=== PATIENT | female | born 1990 | race Caucasian/White ===

== ENCOUNTER 2021-02-19 20:50 | Emergency (ER) | payer OTHER ==
[2021-02-19 23:34] LABS: Absolute Lymphocytes (CBC) 2.5 K/uL (0.7-4.9); Basophils % 0.7 % (0-1.3); Hematocrit 36.5 % (36.0-45.0); Lymphocytes % 37.4 % (15.3-44.8); MPV 8.4 fL (7.6-11.3); RBC Red Blood Cell Count 3.85 M/uL (3.86-4.86)
[2021-02-19 23:35] LABS: Protime INR 1.11
[2021-02-19 23:39] LABS: Urine Blood Trace-intact (Negative); Urine Glucose Negative (Negative); Urine Protein Negative (Negative)
[2021-02-19 23:56] LABS: ALT/SGPT 14 U/L (12-78); AST/SGOT 8 U/L (15-37); Albumin 3.9 g/dL (3.4-5.0); Alkaline Phosphatase 61 U/L (45-117); BUN Blood Urea Nitrogen 10 mg/dL (7-18); Bicarbonate 26 mmol/L (21-32); Bilirubin Direct 0.1 mg/dL (0-0.2); Bilirubin Total 0.4 mg/dL (0.2-1.0); Glucose Level 89 mg/dL (74-106); Magnesium 2.3 mg/dL (1.8-2.4); NT PRO-BNP 107 pg/mL (<125); Potassium 3.9 mmol/L (3.5-5.1); Protein, Total 6.8 g/dL (6.4-8.2); Sodium Level 143 mmol/L (136-145); Troponin (Emerg Dept Use Only) < 0.02 ng/mL (0.0-0.045)
[2021-02-20] MEDS ORDERED: KETOROLAC 30 MG/ML INJ ONE (01:55)
--- NOTE | 2021-02-20 02:28 | EDPHYS ---
Physician Documentation [facility] Name: Ximena Smith Age: 30 yrs Sex: Female : 1990 Arrival Date: 02/19/2021 Time: 20:55 Bed 27 Private MD: ED Physician Moy Fountain HPI: 02/20 01:15 This 30 yrs old Female presents to ER via Ambulatory with complaints of Chest mh7 Pain, LT armr circulation cutting off. 01:15 The patient or guardian reports chest pain that is located primarily in the anterior mh7 chest wall, left. The pain radiates to the left arm. 01:15 Associated signs and symptoms: Pertinent negatives: abdominal pain, cough, diaphoresis, mh7 dizziness, headache, lower extremity pain, lower extremity swelling, lightheadedness, nausea, near syncope, palpitations, recent travel, shortness of breath, syncope, vomiting. 01:15 The chest pain is described as sharp. mh7 01:15 Duration: The patient or guardian reports multiple episodes, that are intermittent, mh7 that wax and wane, with no pattern. 01:15 Modifying factors: The symptoms are alleviated by nothing. the symptoms are aggravated mh7 by movement. Severity of pain: At its worst the pain was moderate last night, in the emergency department the pain has improved markedly. 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 - Social history:: Smoking status: Patient reports the use of cigarette tobacco products, smokes one-half pack cigarettes per day, Patient uses alcohol, occasionally. ROS: 02/20 01:15 Constitutional: Negative for fever, chills, and weight loss, Eyes: Negative for injury, mh7 pain, redness, and discharge, ENT: Negative for injury, pain, and discharge, Respiratory: Negative for shortness of breath, cough, wheezing, and pleuritic chest pain, Abdomen/GI: Negative for abdominal pain, nausea, vomiting, diarrhea, and constipation, Back: Negative for injury and pain, : Negative for injury, bleeding, discharge, and swelling, MS/Extremity: Negative for injury and deformity, Skin: Negative for injury, rash, and discoloration, Psych: Negative for depression, anxiety, suicide ideation, homicidal ideation, and hallucinations, Allergy/Immunology: Negative for hives, rash, and allergies, Endocrine: Negative for neck swelling, polydipsia, polyuria, polyphagia, and marked weight changes, Hematologic/Lymphatic: Negative for swollen nodes, abnormal bleeding, and unusual bruising. Exam: 01:15 Constitutional: This is a well developed, well nourished patient who is awake, alert, mh7 and in no acute distress. Head/Face: Normocephalic, atraumatic. Eyes: Pupils equal round and reactive to light, extra-ocular motions intact. Lids and lashes normal. Conjunctiva and sclera are non-icteric and not injected. Cornea within normal limits. Periorbital areas with no swelling, redness, or edema. Neck: Trachea midline, no thyromegaly or masses palpated, and no cervical lymphadenopathy. Supple, full range of motion without nuchal rigidity, or vertebral point tenderness. No Meningismus. Chest/axilla: Normal chest wall appearance and motion. Nontender with no deformity. No lesions are appreciated. Cardiovascular: Regular rate and rhythm with a normal S1 and S2. No gallops, murmurs, or rubs. Normal PMI, no JVD. No pulse deficits. Respiratory: Lungs have equal breath sounds bilaterally, clear to auscultation and percussion. No rales, rhonchi or wheezes noted. No increased work of breathing, no retractions or nasal flaring. Abdomen/GI: Soft, non-tender, with normal bowel sounds. No distension or tympany. No guarding or rebound. No evidence of tenderness throughout. Back: No spinal tenderness. No costovertebral tenderness. Full range of motion. Skin: Warm, dry with normal turgor. Normal color with no rashes, no lesions, and no evidence of cellulitis. MS/ Extremity: Pulses equal, no cyanosis. Neurovascular intact. Full, normal range of motion. Neuro: Awake and alert, GCS 15, oriented to person, place, time, and situation. Cranial nerves II-XII grossly intact. Motor strength 5/5 in all extremities. Sensory grossly intact. Cerebellar exam normal. Normal gait. Psych: Awake, alert, with orientation to person, place and time. Behavior, mood, and affect are within normal limits. Vital Signs: 02/19 21:27 BP 145 / 86; Pulse 69; Resp 20; Temp 98.1(O); Pulse Ox 100% on R/A; Weight 81.65 kg kg (R); Height 5 ft. 8 in. (172.72 cm); Pain 7/10; 21:27 Body Mass Index 27.37 (81.65 kg, 172.72 cm) kg MDM: 02/20 02:24 Differential diagnosis: acute myocardial infarction, acute pericarditis, anxiety, mh7 coronary artery disease chest wall pain, congestive heart failure costochondritis, myocarditis, pericarditis, pneumonia, pulmonary embolus. HEART Score: History: Slightly Suspicious (0), ECG: Normal (0), Age: < or = 45 years (0), Risk Factors: No Risk Factors Known (0), Troponin: < or = 1 x Normal Limit (0), Total Score = 0. Data reviewed: vital signs, nurses notes, lab test result(s), cardiac enzymes, CBC, electrolytes, urinalysis, UPT: negative EKG, radiologic studies, plain films. Data interpreted: Pulse oximetry: on room air is 100 %. Interpretation: normal. Counseling: I had a detailed discussion with the patient and/or guardian regarding: the historical points, exam findings, and any diagnostic results supporting the discharge/admit diagnosis, the presence of at least one elevated blood pressure reading (>120/80) during this emergency department visit, lab results, radiology results, the need for outpatient follow up. Response to treatment: the patient's symptoms have resolved after treatment, the patient's blood pressure is in an acceptable range, mental status has returned to baseline, the patient no longer shows bradycardia, the patient is not short of breath, the patient is not tachycardic, the patient's pain is gone, the patient's temperature has normalized, the patient is now symptom free, patient is well hydrated. 02:27 Patient medically screened. [facility] 02/19 21:33 Order name: Basic Metabolic Panel; Complete Time: 01:09 kg 02/19 21:33 Order name: CBC with Diff; Complete Time: 01:09 kg 02/19 21:33 Order name: LFT's; Complete Time: 01:09 kg 02/19 21:33 Order name: Magnesium; Complete Time: 01:09 kg 02/19 21:33 Order name: NT PRO-BNP; Complete Time: 01:09 kg 02/19 21:33 Order name: PT-INR; Complete Time: 01:50 kg 02/19 21:33 Order name: Troponin (emerg Dept Use Only); Complete Time: 01:09 kg 02/19 21:33 Order name: XRAY Chest (1 view) kg 02/19 21:33 Order name: EKG; Complete Time: 21:33 kg 02/19 23:38 Order name: Urine Dipstick-Ancillary; Complete Time: 01:09 EDMS 02/19 23:40 Order name: Urine --Ancillary (enter results); Complete Time: 01:09 ds4 02/20 01:28 Order name: D-Dimer [facility] 02/20 01:47 Order name: D-Dimer; Complete Time: 01:50 EDMS 02/19 21:33 Order name: Cardiac monitoring; Complete Time: 01:24 kg 02/19 21:33 Order name: EKG - Nurse/Tech; Complete Time: 21:33 kg 02/19 21:33 Order name: IV Saline Lock; Complete Time: 02:03 kg 02/19 21:33 Order name: Labs collected and sent; Complete Time: 01:09 kg 02/19 21:33 Order name: O2 Per Protocol; Complete Time: 23:40 kg 02/19 21:33 Order name: O2 Sat Monitoring; Complete Time: 23:40 kg Administered Medications: 01:55 Drug: Ketorolac 30 mg Route: IVP; Site: right antecubital; lp1 02:56 Follow up: Response: No adverse reaction; Marked relief of symptoms em Disposition Summary: 02/20/21 02:27 Discharge Ordered Location: Home [facility] Problem: new [facility] Symptoms: have improved [facility] Condition: Stable [facility] Diagnosis - Chest pain, unspecified 7 Followup: [facility] - With: Private Physician - When: 1 - 2 days - Reason: Worsening of condition, Recheck today's complaints, Continuance of care, Re-evaluation by your physician Discharge Instructions: - Discharge Summary Sheet [facility] - Nonspecific Chest Pain, Adult, [id number] [facility] Forms: - Medication Reconciliation Form [facility] - Thank You Letter [facility] - Antibiotic Education [facility] - Prescription Opioid Use [facility] Prescriptions: - ketorolac 10 mg Oral tablet - take 1 tablet by ORAL route every 6 hours As needed not to exceed 40 mg in [facility] 24hrs; 12 tablet; Refills: 0, Product Selection Permitted Signatures: Dispatcher [employer] Chanell Bailey RN RN 1 Salvador Nicole, DOUBLE END PRODUCTION GRINDER-C DOUBLE END PRODUCTION GRINDER-[facility]1 Moy Fountain MD MD [facility] Noelle Chawla RN RN Herbert Connell RN
--- NOTE | 2021-02-20 02:28 | ER ---
Nurse's Notes [facility] Name: Ximena Smith Age: 30 yrs Sex: Female : 1990 Arrival Date: 02/19/2021 Time: 20:55 Bed 27 Private MD: Diagnosis: Chest pain, unspecified Presentation: 02/19 21:27 Chief complaint: Patient states: Left arm pain that radiates to left side of the neck, kg tingling, numbness and burning starting at 20:00 while she was laying in bed resting. Coronavirus screen: Client denies travel out of the [place] in the last 14 days. At this time, unable to obtain information related to travel outside the [place] At this time, the client does not indicate any symptoms associated with coronavirus-19. Ebola Screen: Patient negative for fever greater than or equal to 101.5 degrees Fahrenheit, and additional compatible Ebola Virus Disease symptoms Patient denies exposure to infectious person. Patient denies travel to an Ebola-affected area in the 21 days before illness onset. Initial Sepsis Screen: Does the patient meet any 2 criteria? No. Patient's initial sepsis screen is negative. Does the patient have a suspected source of infection? No. Patient's initial sepsis screen is negative. Risk Assessment: Do you want to hurt yourself or someone else? Patient reports no desire to harm self or others. Onset of symptoms was February 19, 2021 at 20:00. 21:27 Method Of Arrival: Ambulatory kg 21:27 Acuity: LAVINIA 3 kg Triage Assessment: 21:29 General: Appears in no apparent distress. Behavior is calm, cooperative, appropriate kg for age, quiet. Pain: Complains of pain in Left arm, Left neck, left sided chest pain. Cardiovascular: Reports chest pain, nausea. 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 - Social history:: Smoking status: Patient reports the use of cigarette tobacco products, smokes one-half pack cigarettes per day, Patient uses alcohol, occasionally. Screenin:31 Abuse screen: Denies threats or abuse. Denies injuries from another. Nutritional kg screening: No deficits noted. Tuberculosis screening: No symptoms or risk factors identified. Fall Risk None identified. Assessment: 21:32 Pain: Pain radiates to Left side of neck Pain began 2 hours ago. kg 02/20 02:55 Reassessment: Patient appears in no apparent distress at this time. Patient and/or em family updated on plan of care and expected duration. Pain level reassessed. Patient is alert, oriented x 3, equal unlabored respirations, skin warm/dry/pink. Vital Signs: 02/19 21:27 BP 145 / 86; Pulse 69; Resp 20; Temp 98.1(O); Pulse Ox 100% on R/A; Weight 81.65 kg kg (R); Height 5 ft. 8 in. (172.72 cm); Pain 7/10; 21:27 Body Mass Index 27.37 (81.65 kg, 172.72 cm) kg ED Course: 20:55 Patient arrived in ED. es 21:29 Triage completed. kg 21:29 Arm band placed on right wrist. kg 21:31 Patient has correct armband on for positive identification. kg 21:32 Patient maintains SpO2 saturation greater than 95% on room air. kg 22:08 XRAY Chest (1 view) In Process Unspecified. EDMS 02/20 01:08 Moy Fountain MD is Attending Physician. [facility] 01:29 Herbert Connell, TOMI is Primary Nurse. em 01:55 Inserted saline lock: 22 gauge in right antecubital area, using aseptic technique. em 02:54 No provider procedures requiring assistance completed. IV discontinued, intact, em bleeding controlled, No redness/swelling at site. Pressure dressing applied. Administered Medications: 01:55 Drug: Ketorolac 30 mg Route: IVP; Site: right antecubital; lp1 02:56 Follow up: Response: No adverse reaction; Marked relief of symptoms em Outcome: :27 Discharge ordered by . 7 02:56 Discharged to home ambulatory. em 02:56 Condition: stable 02:56 Discharge instructions given to patient, Instructed on discharge instructions, follow up and referral plans. medication usage, Demonstrated understanding of instructions, follow-up care, medications, Prescriptions given X 1. 02:56 Patient left the ED. em Signatures: Dispatcher [employer] Jolie Brice Edgar, RN RN em Chanell Soto RN RN lp1 Moy Fountain MD MD 7 Noelle Chawla RN RN kg
[2021-02-20 03:05] VITALS: BP 145/86; TEMP 98.1; O2SAT 100
--- NOTE | 2021-02-20 07:25 | RAD REPORT ---
EXAM DESCRIPTION: RAD - Chest Single View - 02/19/2021 10:07 pm CLINICAL HISTORY: PAIN COMPARISON: No comparisons FINDINGS: No evidence of edema or pneumonia. The heart size is within normal limits.No acute osseous abnormality. No significant pleural effusions or pneumothorax. IMPRESSION: No acute cardiopulmonary disease.
== END 2021-02-20 02:56 | disposition home or self-care (01) ==
LOC: ER 20:50
DX: R07.89 Other chest pain (principal); F17.210 Nicotine dependence, cigarettes, uncomplicated
CPT/HCPCS: 36415; 71045; 80048; 80076; 81003; 81025; 83735; 83880; 84484; 85025; 85379; 85610; 93005; 96374; 99284

== ENCOUNTER 2021-03-12 19:46 | Emergency (ER) | payer OTHER ==
[2021-03-12 20:28] LABS: Urine Blood Negative (Negative); Urine Glucose Negative (Negative); Urine Protein Negative (Negative); Urine Specific Gravity 1.015 (1.005-1.030); Urine pH 8.5 (5.0-7.0)
[2021-03-12 20:47] LABS: Urine Specific Gravity/Preg 1.015 (1.005-1.030)
[2021-03-12 20:54] LABS: Absolute Lymphocytes (CBC) 2.2 K/uL (0.7-4.9); Basophils % 0.5 % (0-1.3); Hematocrit 38.8 % (36.0-45.0); Lymphocytes % 27.6 % (15.3-44.8); MPV 8.7 fL (7.6-11.3)
[2021-03-12] MEDS ORDERED: ONDANSETRON 4 MG/2 ML VIAL ONE (21:05)
[2021-03-12] MEDS ORDERED: KETOROLAC 30 MG/ML INJ ONE (21:05)
[2021-03-12 21:18] LABS: ALT/SGPT 16 U/L (12-78); AST/SGOT 10 U/L (15-37); Albumin 3.9 g/dL (3.4-5.0); Alkaline Phosphatase 68 U/L (45-117); BUN Blood Urea Nitrogen 11 mg/dL (7-18); Bicarbonate 26 mmol/L (21-32); Bilirubin Direct < 0.1 mg/dL (0-0.2); Bilirubin Total 0.3 mg/dL (0.2-1.0); Glucose Level 90 mg/dL (74-106); Lipase 62 U/L (73-393); Potassium 3.4 mmol/L (3.5-5.1); Sodium Level 142 mmol/L (136-145)
[2021-03-12 21:39] LABS: Urine Bacteria 20-50 /HPF (<20); Urine RBC NONE SEEN /HPF (NONE SEEN)
--- NOTE | 2021-03-12 21:58 | RAD REPORT ---
EXAM DESCRIPTION: US - Transvaginal Study Probe - 03/12/2021 9:31 pm CLINICAL HISTORY: lower abdomen pain Pelvic pain. COMPARISON: No comparisons FINDINGS: The uterus is normal in size, shape and echotexture. The uterus measures 6.4 x 5.4 x 4.8 c m. The endometrial stripe measures 8 mm, normal. Both ovaries are normal in size, shape and echotexture. The right ovary measures 3.8 x 2.6 x 2.2 cm. The left ovary measures 3.2 x 1.7 x 1.6 cm. No ovarian or parovarian lesions. No adnexal masses. Normal Doppler blood flow was demonstrated to both ovaries. Trace pelvic free fluid. IMPRESSION: Unremarkable study.
--- NOTE | 2021-03-12 22:03 | RAD REPORT ---
EXAM DESCRIPTION: CT - Stone Protocol - 03/12/2021 9:58 pm CLINICAL HISTORY: Flank pain. left side abdomen pain COMPARISON: No comparisons TECHNIQUE: Axial images were obtained without oral or IV contrast. Lack of contrast limits solid org an and vascular assessment. The [id number] spans the entirety of the system partially obscuring uppermost abdomen and lung bases. Coronal reformatted images were obtained and reviewed. All CT scans are performed using dose optimization technique as appropriate and may include automated exposure control or mA/KV adjustment according to patient size. FINDINGS: The lower lung ochoa are clear. Imaged portions of the liver and spleen show no suspicious findings on non-contrast imaging. The panc reas and adrenal glands are normal. No pathologic lymphadenopathy in the abdomen or pelvis. No urinary tract stones or obstructive uropathy. No bowel obstruction, free air, free fluid or abscess. Appendectomy. No significant bony abnormality. IMPRESSION: No urinary tract stones or obstructive uropathy.
--- NOTE | 2021-03-12 22:17 | EDPHYS ---
Physician Documentation [facility] Name: Ximena Smith Age: 31 yrs Sex: Female : 1990 Arrival Date: 03/12/2021 Time: 19:47 Bed 4 Private MD: ED Physician Sebastián Yoder HPI: 03/12 20:20 This 31 yrs old Female presents to ER via Ambulatory with complaints of cp Abdominal Pain. 20:20 The patient presents with abdominal pain in the left lower quadrant. cp 20:20 Onset: The symptoms/episode began/occurred suddenly, today, 5 hour(s) ago. cp 20:20 The symptoms do not radiate. Associated signs and symptoms: Pertinent negatives: cp constipation, diarrhea, dysuria, fever, vaginal discharge, vaginal bleeding. The symptoms are described as sharp. Modifying factors: the symptoms are aggravated by movement, pressure. Severity of pain: in the emergency department the pain is unchanged despite home interventions. 20:20 Patient reports pain similar to when diagnosed with ectopic in the past. 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 - Social history:: Smoking status: Patient reports the use of cigarette tobacco products, smokes one-half pack cigarettes per day. ROS: 20:30 Constitutional: Negative for body aches, chills, fever, poor PO intake. cp 20:30 Eyes: Negative for injury, pain, redness, and discharge. cp 20:30 ENT: Negative for ear pain, sore throat, difficulty swallowing, difficulty handling secretions. 20:30 Respiratory: Negative for cough, shortness of breath, wheezing. 20:30 Abdomen/GI: Positive for abdominal pain, of the left lower quadrant, Negative for vomiting, diarrhea, constipation, anorexia. 20:30 Back: Negative for radiated pain. 20:30 : Negative for urinary symptoms, pelvic pain, vaginal bleeding, vaginal discharge. 20:30 Skin: Negative for rash. 20:30 Neuro: Negative for altered mental status, headache, weakness. 20:30 All other systems are negative. Exam: 20:35 Constitutional: The patient appears in no acute distress, alert, awake, non-toxic, well cp developed, well nourished. 20:35 Head/Face: Normocephalic, atraumatic. cp 20:35 Eyes: Periorbital structures: appear normal, Conjunctiva: normal, no exudate, no injection, Sclera: no appreciated abnormality, Lids and lashes: appear normal, bilaterally. 20:35 ENT: External ear(s): are unremarkable, Nose: is normal, Mouth: Lips: moist, Oral mucosa: moist, Posterior pharynx: Airway: no evidence of obstruction, patent. 20:35 Chest/axilla: Inspection: normal, Palpation: is normal, no crepitus, no tenderness. 20:35 Cardiovascular: Rate: normal, Rhythm: regular. 20:35 Respiratory: the patient does not display signs of respiratory distress, Respirations: normal, no use of accessory muscles, no retractions, labored breathing, is not present, Breath sounds: are clear throughout, no decreased breath sounds. 20:35 Abdomen/GI: Inspection: abdomen appears normal, Bowel sounds: active, all quadrants, Palpation: soft, in all quadrants, moderate abdominal tenderness, in the left lower quadrant, rebound tenderness, is not appreciated, voluntary guarding, is elicited in the left lower quadrant. 20:35 Back: CVA tenderness, is absent. 20:35 Skin: no rash present. Vital Signs: 20:05 BP 143 / 86; Pulse 82; Resp 18; Temp 98.6; Pulse Ox 100% on R/A; Weight 81.65 kg; wg Height 5 ft. 8 in. (172.72 cm); Pain 8/10; 21:58 BP 114 / 70; Pulse 75; Resp 16; Pulse Ox 99% on R/A; Pain 6/10; lp1 20:05 Body Mass Index 27.37 (81.65 kg, 172.72 cm) wg MDM: 20:17 Patient medically screened. cp 21:00 Differential diagnosis: non-specific abd pain, Ovarian Torsion, Pelvic Inflammatory cp Disease, Pyelonephritis, Tubal Ovarian Abcess, Ureterolithiasis, urinary tract infection. 22:15 Data reviewed: vital signs, nurses notes, lab test result(s), radiologic studies, CT cp scan, plain films. 22:15 Counseling: I had a detailed discussion with the patient and/or guardian regarding: the cp historical points, exam findings, and any diagnostic results supporting the discharge/admit diagnosis, lab results, radiology results, to return to the emergency department if symptoms worsen or persist or if there are any questions or concerns that arise at home. Response to treatment: the patient's symptoms have markedly improved after treatment. Special discussion: Based on the patient's Hx, exam, and Dx evaluation, there is no indication for emergent surgery or inpatient Tx. It is understood by the patient/guardian that if the Sx's persist or worsen they need to return immediately for re-evaluation. ED course: VSS. Pain markedly improved. Radiology studies reviewed and negative for acute findings. Will discharge to home for continued monitoring. 03/12 20:11 Order name: Basic Metabolic Panel; Complete Time: 21:36 wg 03/12 21:45 Interpretation: Normal except: K 3.4; CL 113; GFR 76. 03/12 20:11 Order name: CBC with Diff; Complete Time: 21:36 wg 03/12 20:11 Order name: Hepatic Function; Complete Time: 21:36 wg 03/12 20:11 Order name: Lipase; Complete Time: 21:36 wg 03/12 20:28 Order name: Urine Dipstick-Ancillary; Complete Time: 21:36 EDMS 03/12 20:31 Order name: Urine Microscopic Only; Complete Time: 21:45 03/12 21:45 Interpretation: Normal except: UBACT 20-50; SQEPI 5-10. 03/12 20:31 Order name: Urine Culture 03/12 20:31 Order name: US Transvaginal Study (Probe); Complete Time: 22:06 03/12 20:31 Order name: Urine --Ancillary (enter results); Complete Time: 21:36 tt3 03/12 21:37 Order name: CT Stone Protocol; Complete Time: 22:06 03/12 20:11 Order name: IV Saline Lock; Complete Time: 20:37 wg 03/12 20:11 Order name: Labs collected and sent; Complete Time: 20:37 wg 03/12 20:11 Order name: Urine Test (obtain specimen); Complete Time: 20:37 wg Administered Medications: 20:38 Not Given (Patient Refused; reports bad headache with adminstration): morphine 4 mg IVP lp1 once; RASS on ADMIN: Combtv4, Very Agttd3, Agttd2, Rstlss1, AlertClm0, Drwsy-1, Lt Sdtn-2, Mod Sdtn-3, Dp Sdtn-4, UnArsble-5 20:46 Drug: Zofran (Ondansetron) 4 mg Route: IVP; Site: right antecubital; lp1 22:13 Follow up: Response: No adverse reaction lp1 20:46 Drug: Ketorolac 15 mg Route: IVP; Site: right antecubital; lp1 22:13 Follow up: Response: Pain is decreased lp1 22:13 Drug: fentaNYL (PF) 25 mcg Route: IVP; Site: right antecubital; lp1 22:30 Follow up: Response: No adverse reaction; Pain is decreased lp1 Disposition Summary: 03/12/21 22:16 Discharge Ordered Location: Home cp Problem: new cp Symptoms: have improved cp Condition: Stable cp Diagnosis - Lower abdominal pain, unspecified cp Followup: cp - With: Private Physician - When: 2 - 3 days - Reason: Recheck today's complaints Discharge Instructions: - Discharge Summary Sheet cp - Abdominal Pain, Adult cp Forms: - Medication Reconciliation Form cp - Thank You Letter cp - Antibiotic Education cp - Prescription Opioid Use cp Prescriptions: - Diclofenac Sodium 75 mg Oral tablet,delayed release (DR/EC) - take 1 tablet by ORAL route 2 times per day; 20 tablet; Refills: 0, Product cp Selection Permitted - dicyclomine 20 mg Oral Tablet - take 1 tablet by ORAL route 4 times per day; 30 tablet; Refills: 0, Product cp Selection Permitted Signatures: Dispatcher [employer] Chanell Bailey RN RN lp1 Ricci Jalloh PA PA cp Gamba, Liam, RN wg
--- NOTE | 2021-03-12 22:17 | ER ---
Nurse's Notes [facility] Name: Ximena Smith Age: 31 yrs Sex: Female : 1990 Arrival Date: 03/12/2021 Time: 19:47 Bed 4 Private MD: Diagnosis: Lower abdominal pain, unspecified Presentation: 03/12 20:05 Chief complaint: Patient states: Pt states she was at an arcade with her kids about 5 wg hours ago when she started feeling sharp LLQ abd pain. Pt states it feels similar to when she had an ectopic in the past. Pt denies SOB, CP, N/V, diarrhea or headache. Pt states she is unsure if she is preg. Coronavirus screen: Vaccine status: Patient reports being unvaccinated. At this time, the client does not indicate any symptoms associated with coronavirus-19. Ebola Screen: Patient negative for fever greater than or equal to 101.5 degrees Fahrenheit, and additional compatible Ebola Virus Disease symptoms Patient denies exposure to infectious person. Patient denies travel to an Ebola-affected area in the 21 days before illness onset. No symptoms or risks identified at this time. Initial Sepsis Screen: Does the patient meet any 2 criteria? No. Patient's initial sepsis screen is negative. Does the patient have a suspected source of infection? No. Patient's initial sepsis screen is negative. Risk Assessment: Do you want to hurt yourself or someone else? Patient reports no desire to harm self or others. Onset of symptoms was March 12, 2021 at 15:00. Care prior to arrival: None. 20:05 Method Of Arrival: Ambulatory wg 20:05 Acuity: LAVINIA 3 wg Triage Assessment: 20:08 General: Appears distressed, uncomfortable, well groomed, well developed, Behavior is wg cooperative, appropriate for age, restless. Pain: Complains of pain in abdomen- LLQ Pain radiates to States radiating to her left clavicle. Pain currently is 8 out of 10 on a pain scale. Quality of pain is described as sharp, Pain began 5 hours ago. EENT: No deficits noted. Neuro: No deficits noted. Cardiovascular: No deficits noted. Respiratory: No deficits noted. GI: Reports lower abdominal pain, normal bowel habits, Patient currently denies nausea, vomiting. : No deficits noted. Derm: No signs and/or symptoms reported regarding the dermatologic system. Musculoskeletal: No deficits noted. 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 - Social history:: Smoking status: Patient reports the use of cigarette tobacco products, smokes one-half pack cigarettes per day. Screenin:39 Abuse screen: Denies threats or abuse. Denies injuries from another. Nutritional lp1 screening: No deficits noted. Tuberculosis screening: No symptoms or risk factors identified. Fall Risk None identified. Assessment: 20:46 Reassessment:. General: Appears uncomfortable, Behavior is appropriate for age. Pain: lp1 Complains of pain in left lower quadrant Pain currently is 7 out of 10 on a pain scale. Quality of pain is described as sharp. Neuro: Level of Consciousness is awake, alert, obeys commands. Cardiovascular: Patient's skin is warm and dry. Respiratory: Respiratory effort is even, unlabored. GI: Abdomen is non-distended, Bowel sounds present X 4 quads. Abdomen is tender to palpation in left lower quadrant Reports lower abdominal pain, nausea. : Denies burning with urination, urinary frequency. EENT: No signs and/or symptoms were reported regarding the EENT system. Derm: Skin is pink, warm \T\ dry. Musculoskeletal: No deficits noted. 21:52 Reassessment: Returned from CT. lp1 22:30 Reassessment: Patient appears in no apparent distress at this time. Patient is alert, lp1 oriented x 3, equal unlabored respirations, skin warm/dry/pink. Patient states feeling better. Vital Signs: 20:05 BP 143 / 86; Pulse 82; Resp 18; Temp 98.6; Pulse Ox 100% on R/A; Weight 81.65 kg; wg Height 5 ft. 8 in. (172.72 cm); Pain 8/10; 21:58 BP 114 / 70; Pulse 75; Resp 16; Pulse Ox 99% on R/A; Pain 6/10; lp1 20:05 Body Mass Index 27.37 (81.65 kg, 172.72 cm) ED Course: 19:47 Patient arrived in ED. wm 20:08 Triage completed. wg 20:08 Arm band placed on right wrist. wg 20:16 Ricci Jalloh PA is PHCP. cp 20:16 Sebastián Yoder MD is Attending Physician. cp 20:24 Chanell Soto RN is Primary Nurse. lp1 20:30 Inserted saline lock: 20 gauge in right antecubital area, using aseptic technique. lp1 Blood collected. 20:47 Patient has correct armband on for positive identification. lp1 21:31 US Transvaginal Study (Probe) In Process Unspecified. EDMS 21:58 CT Stone Protocol In Process Unspecified. EDMS 22:30 No provider procedures requiring assistance completed. IV discontinued, No lp1 redness/swelling at site. Pressure dressing applied. Administered Medications: 20:38 Not Given (Patient Refused; reports bad headache with adminstration): morphine 4 mg IVP lp1 once; RASS on ADMIN: Combtv4, Very Agttd3, Agttd2, Rstlss1, AlertClm0, Drwsy-1, Lt Sdtn-2, Mod Sdtn-3, Dp Sdtn-4, UnArsble-5 20:46 Drug: Zofran (Ondansetron) 4 mg Route: IVP; Site: right antecubital; lp1 22:13 Follow up: Response: No adverse reaction lp1 20:46 Drug: Ketorolac 15 mg Route: IVP; Site: right antecubital; lp1 22:13 Follow up: Response: Pain is decreased lp1 22:13 Drug: fentaNYL (PF) 25 mcg Route: IVP; Site: right antecubital; lp1 22:30 Follow up: Response: No adverse reaction; Pain is decreased lp1 Outcome: 22:16 Discharge ordered by MD. cp 22:30 Discharged to home ambulatory, with family. lp1 22:30 Condition: good 22:30 Discharge instructions given to patient, Instructed on discharge instructions, follow up and referral plans. medication usage, Demonstrated understanding of instructions, follow-up care, medications, Prescriptions given X 2. 22:30 Patient left the ED. lp1 Signatures: Dispatcher [employer] EDME Chanell Soto RN RN lp1 Page, Ricci, Loly Desir cp, Tae, RN wg
[2021-03-12] MEDS ORDERED: FENTANYL CITR 100 MCG/2 ML ONE (22:33)
[2021-03-12 22:39] VITALS: TEMP 98.6
[2021-03-12 22:40] VITALS: BP 114/70; O2SAT 99
== END 2021-03-12 22:30 | disposition home or self-care (01) ==
LOC: ER 19:46
DX: R10.32 Left lower quadrant pain (principal); F17.210 Nicotine dependence, cigarettes, uncomplicated
CPT/HCPCS: 87088; 85025; 87086; 80048; 36415; 81025; 80076; 87077; 87186; 83690; 76377; 74176; 76830; 96375; 96374; 99284; J3010; J2405; 81003; 81015

== ENCOUNTER 2021-08-06 14:49 | Emergency (ER) | payer OTHER ==
[2021-08-06] MEDS ORDERED: ONDANSETRON 4 MG/2 ML VIAL ONE (15:37)
[2021-08-06] MEDS ORDERED: MORPHINE 2 MG/ML SYR ONE (15:37)
[2021-08-06] MEDS ORDERED: NA CHLORIDE 0.9% 1,000 ML ONE (15:37)
[2021-08-06] MEDS ORDERED: NA CHLORIDE 0.9% 0 ML ONE (15:37)
[2021-08-06 15:43] LABS: Urine Blood Negative (Negative); Urine Glucose Negative (Negative); Urine Protein Trace (Negative); Urine Specific Gravity 1.025 (1.005-1.030); Urine pH 8.5 (5.0-7.0)
[2021-08-06 16:09] LABS: Absolute Lymphocytes (CBC) 1.5 K/uL (0.7-4.9); Hematocrit 40.2 % (36.0-45.0); Lymphocytes % 20.2 % (15.3-44.8); MPV 9.2 fL (7.6-11.3); RBC Red Blood Cell Count 4.28 M/uL (3.86-4.86)
[2021-08-06 16:11] LABS: Urine Specific Gravity/Preg 1.025 (1.005-1.030)
--- NOTE | 2021-08-06 16:21 | RAD REPORT ---
EXAM DESCRIPTION: CTAbdomen Pelvis W Contrast - 08/06/2021 4:07 pm CLINICAL HISTORY: Abdominal pain. left lower abdomen pain COMPARISON: No comparisons TECHNIQUE: Biphasic CT imaging of the abdomen and pelvis was performed with 100 ml non-ionic IV cont rast. All CT scans are performed using dose optimization technique as appropriate and may include automated exposure control or mA/KV adjustment according to patient size. FINDINGS: The lung bases are clear. The liver, spleen, pancreas, adrenal glands and kidneys are within normal limits. No bowel obstruction, free air, free fluid or abscess. Appendectomy. No evidence of significant lym phadenopathy. No suspicious bony findings. IMPRESSION: No acute intra-abdominal or pelvic finding.
[2021-08-06 16:24] LABS: ALT/SGPT 17 U/L (12-78); Albumin 4.3 g/dL (3.4-5.0); BUN Blood Urea Nitrogen 9 mg/dL (7-18); Bicarbonate 26 mmol/L (21-32); Bilirubin Direct 0.2 mg/dL (0-0.2); Glucose Level 85 mg/dL (74-106); Lipase 59 U/L (73-393); Sodium Level 140 mmol/L (136-145)
[2021-08-06 16:26] LABS: Alkaline Phosphatase 69 U/L (45-117); Bilirubin Total 0.8 mg/dL (0.2-1.0); Protein, Total 7.7 g/dL (6.4-8.2)
[2021-08-06 16:34] LABS: Urine Bacteria <20 /HPF (<20); Urine Mucus 2+ /HPF (NONE SEEN); Urine RBC <5 /HPF (NONE SEEN)
[2021-08-06 16:39] LABS: AST/SGOT 22 U/L (15-37); Potassium 4.1 mmol/L (3.5-5.1)
--- NOTE | 2021-08-06 18:11 | RAD REPORT ---
EXAM DESCRIPTION: US - Transvaginal Study Probe - 08/06/2021 6:01 pm CLINICAL HISTORY: left adnexal pain Pelvic pain. COMPARISON: Transvaginal Study Probe dated 03/12/2021 FINDINGS: The uterus is normal in size, shape and echotexture. The uterus measures 8.8 x 7.1 x 5.9 c m. The endometrial stripe measures 14 mm, normal. Both ovaries are normal in size, shape and echotexture. The right ovary measures 3.3 x 2.2 x 2.1 cm. The left ovary measures 3.2 x 2.1 x 2.0 cm. No ovarian or parovarian lesions. No adnexal masses. Normal Doppler blood flow was demonstrated to both ovaries. No significant pelvic ascites. IMPRESSION: Unremarkable study.
[2021-08-06] MEDS ORDERED: KETOROLAC 30 MG/ML INJ ONE (18:34)
--- NOTE | 2021-08-06 19:50 | ER ---
Nurse's Notes [facility] Name: Ximena Smith Age: 31 yrs Sex: Female : 1990 Arrival Date: 08/06/2021 Time: 14:53 Bed 16 Private MD: Diagnosis: Lower abdominal pain, unspecified Presentation: 08/06 15:04 Chief complaint: Patient states: I have PCOS - 2 hours ago I began having LLQ/pelvis ld1 pain, I am also hurting in my rectum - feels like a lot of pressure. Coronavirus screen: At this time, the client does not indicate any symptoms associated with coronavirus-19. Ebola Screen: No symptoms or risks identified at this time. Initial Sepsis Screen: Does the patient meet any 2 criteria? No. Patient's initial sepsis screen is negative. Does the patient have a suspected source of infection? No. Patient's initial sepsis screen is negative. Risk Assessment: Do you want to hurt yourself or someone else? Patient reports no desire to harm self or others. Onset of symptoms was August 06, 2021. 15:04 Method Of Arrival: Ambulatory ld1 15:04 Acuity: LAVINIA 3 ld1 Triage Assessment: 15:05 General: Appears in no apparent distress. uncomfortable, Behavior is cooperative, ld1 appropriate for age, anxious. Pain: Complains of pain in gluteal cleft, left lower quadrant and pelvis Pain does not radiate. Pain currently is 8 out of 10 on a pain scale. Quality of pain is described as pressure, squeezing, throbbing, Pain began 2 hours ago. Is continuous. Neuro: Level of Consciousness is awake, alert, obeys commands, Oriented to person, place, time, situation. Respiratory: Airway is patent Respiratory effort is even, unlabored. GI: Abdomen is round non-distended. :. 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 - Social history:: Smoking status: Patient reports the use of cigarette tobacco products, smokes one-half pack cigarettes per day, Reported history of juuling and/or vaping. Patient/guardian denies using alcohol. Screenin:56 Abuse screen: Denies threats or abuse. Denies injuries from another. Nutritional cb5 screening: No deficits noted. Tuberculosis screening: No symptoms or risk factors identified. 15:57 Fall Risk None identified. cb5 Assessment: 15:35 General: Appears in no apparent distress. comfortable, Behavior is calm, cooperative, cb5 appropriate for age. Pain: Complains of pain in pelvis and abdomen and left lower quadrant Pain currently is 5 out of 10 on a pain scale. Neuro: No deficits noted. Cardiovascular: No deficits noted. Cardiovascular: No deficits noted. Respiratory: No deficits noted. GI: Bowel sounds present X 4 quads. Abd is soft Abdomen is tender to palpation. : Denies. EENT: Denies. Derm: Denies. Musculoskeletal: Denies. 16:00 Pain: Pain currently is 2 out of 10 on a pain scale. cb5 19:52 General: Appears in no apparent distress. 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 Gait is steady, Speech is normal. Cardiovascular: Heart tones S1 S2 present Capillary refill < 3 seconds in bilateral fingers toes Clubbing of nail beds is absent JVD is absent Patient's skin is warm and dry. Pulses are 3+ in right radial artery, right dorsalis pedis artery, left radial artery and left dorsalis pedis artery. Respiratory: Airway is patent Trachea midline Respiratory effort is even, unlabored, Respiratory pattern is regular, symmetrical, Breath sounds are clear. GI: Abdomen is non-distended, Bowel sounds present X 4 quads. Abd is soft X 4 quads Abdomen is tender to palpation in right lower quadrant. : No signs and/or symptoms were reported regarding the genitourinary system. Derm: Skin is intact, is healthy with good turgor, Skin is dry, Skin temperature is warm. Musculoskeletal: Circulation, motion, and sensation intact. Capillary refill < 3 seconds, in bilateral fingers. toes. Range of motion: intact in all extremities. Vital Signs: 15:04 BP 136 / 80; Pulse 80; Resp 18; Temp 98.0(O); Pulse Ox 100% on R/A; Weight 72.57 kg; ld1 Height 5 ft. 8 in. (172.72 cm); Pain 8/10; 19:52 BP 110 / 72; Pulse 81; Resp 18; Temp 98.9; Pulse Ox 98% on R/A; mk 15:04 Body Mass Index 24.33 (72.57 kg, 172.72 cm) ld1 Ranulfo Coma Score: 19:52 Eye Response: spontaneous(4). Verbal Response: oriented(5). Motor Response: obeys mk commands(6). Total: 15. ED Course: 14:53 Patient arrived in ED. am2 15:05 Triage completed. ld1 15:05 Arm band placed on right wrist. ld1 15:12 Ricci Jalloh PA is PHCP. cp 15:12 Christian Rubio MD is Attending Physician. cp 15:30 Christa Barth, TOMI is Primary Nurse. cb5 15:52 Basic Metabolic Panel Sent. cb5 15:54 Basic Metabolic Panel Sent. cb5 15:54 CBC with Diff Sent. cb5 15:54 Hepatic Function Sent. cb5 15:55 Urine Microscopic Only Sent. cb5 15:56 Patient has correct armband on for positive identification. Bed in low position. Call cb5 light in reach. Side rails up X 1. 16:08 CT Abd/Pelvis - IV Contrast Only In Process Unspecified. EDMS 18:00 US Transvaginal Study (Probe) In Process Unspecified. EDMS 18:36 GC (GONORR/CHLAMYDIA) Probe Sent. cb5 18:36 Wet Prep Sent. cb5 19:00 Report given to Ray Ballard cb5 19:02 Report given to Ray Ballard cb5 19:10 Primary Nurse role handed off by Christa Barth, RN mw2 19:51 Cori Griffin, RN is Primary Nurse. mk 20:07 Assist provider with pelvic exam: Set up pelvic tray. Specimens sent to lab. Patient mk tolerated well. 20:08 IV discontinued, intact, bleeding controlled, No redness/swelling at site. mk Administered Medications: 15:40 Drug: Zofran (Ondansetron) 4 mg Route: IVP; Site: left antecubital; cb5 20:09 Follow up: Response: No adverse reaction mk 15:40 Drug: morphine 2 mg Route: IVP; Site: left antecubital; cb5 20:09 Follow up: Response: No adverse reaction mk 15:40 Drug: NS 0.9% 1000 ml Route: IV; Rate: 1 bolus; Site: left antecubital; cb5 20:09 Follow up: Response: No adverse reaction mk 20:09 Follow up: Response: No adverse reaction; IV Status: Completed infusion; IV Intake: mk 1000ml 18:35 Drug: Ketorolac 15 mg Route: IVP; Site: left antecubital; cb5 19:50 Follow up: Response: No adverse reaction mk Intake: 20:09 IV: 1000ml; Total: 1000ml. Outcome: 19:50 Discharge ordered by . katie 20:08 Discharged to home mk 20:08 Condition: stable 20:08 Discharge instructions given to patient. 20:08 Patient left the ED. Signatures: Dispatcher [employer] EDMS Ricci Jalloh PA PA cp Moreno, Amanda am2 Mehdi Hood 2 Brenda Lyons, RN RN ld1 Cori Griffin RN RN Christa Dunne, RN RN cb5
--- NOTE | 2021-08-06 19:50 | EDPHYS ---
Physician Documentation [facility] Name: Ximena Smith Age: 31 yrs Sex: Female : 1990 Arrival Date: 08/06/2021 Time: 14:53 Bed 16 Private MD: ED Physician Christian Rubio HPI: 08/06 15:35 This 31 yrs old Female presents to ER via Ambulatory with complaints of Abdominal Pain, cp Nausea. 15:35 The patient presents with abdominal pain in the left lower quadrant. Onset: The cp symptoms/episode began/occurred 2 hour(s) ago. The symptoms do not radiate. Associated signs and symptoms: Pertinent positives: nausea and vomiting, Pertinent negatives: constipation, diarrhea, dysuria, fever, vaginal discharge. The symptoms are described as constant. 15:35 Severity of pain: in the emergency department the pain is unchanged. 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 - Social history:: Smoking status: Patient reports the use of cigarette tobacco products, smokes one-half pack cigarettes per day, Reported history of juuling and/or vaping. Patient/guardian denies using alcohol. ROS: 15:40 Abdomen/GI: Positive for abdominal pain, nausea, of the left adnexa, Negative for cp diarrhea, constipation, active vomiting. Exam: 16:00 Constitutional: The patient appears in no acute distress, alert, awake, non-toxic, well cp developed, well nourished, uncomfortable. 16:00 Head/Face: Normocephalic, atraumatic. cp 16:00 Eyes: Periorbital structures: appear normal, Conjunctiva: normal, no exudate, no injection, Sclera: no appreciated abnormality, Lids and lashes: appear normal, bilaterally. 16:00 ENT: External ear(s): are unremarkable, Nose: is normal, Mouth: Lips: moist, Oral mucosa: moist, Posterior pharynx: Airway: no evidence of obstruction, patent. 16:00 Chest/axilla: Inspection: normal. 16:00 Cardiovascular: Rate: normal, Rhythm: regular. 16:00 Respiratory: the patient does not display signs of respiratory distress, Respirations: normal, no use of accessory muscles, no retractions, labored breathing, is not present, Breath sounds: are clear throughout, no decreased breath sounds, no stridor, no wheezing. 16:00 Abdomen/GI: Inspection: abdomen appears normal, Bowel sounds: active, all quadrants, Palpation: soft, in all quadrants, moderate abdominal tenderness, in the left lower quadrant, rebound tenderness, is not appreciated, voluntary guarding, is elicited in the left lower quadrant. 16:00 Back: CVA tenderness, is absent. 16:00 Skin: cellulitis, is not appreciated, no rash present. Vital Signs: 15:04 BP 136 / 80; Pulse 80; Resp 18; Temp 98.0(O); Pulse Ox 100% on R/A; Weight 72.57 kg; ld1 Height 5 ft. 8 in. (172.72 cm); Pain 8/10; 19:52 BP 110 / 72; Pulse 81; Resp 18; Temp 98.9; Pulse Ox 98% on R/A; mk 15:04 Body Mass Index 24.33 (72.57 kg, 172.72 cm) ld1 [place] Coma Score: 19:52 Eye Response: spontaneous(4). Verbal Response: oriented(5). Motor Response: obeys mk commands(6). Total: 15. MDM: 15:29 Patient medically screened. 19:50 Data reviewed: vital signs, nurses notes, lab test result(s), radiologic studies, CT cp scan, ultrasound. 19:50 Counseling: I had a detailed discussion with the patient and/or guardian regarding: the cp historical points, exam findings, and any diagnostic results supporting the discharge/admit diagnosis, lab results, radiology results, to return to the emergency department if symptoms worsen or persist or if there are any questions or concerns that arise at home. Response to treatment: the patient's symptoms have markedly improved after treatment, and as a result, I will discharge patient. Special discussion: Based on the patient's Hx, exam, and Dx evaluation, there is no indication for emergent surgery or inpatient Tx. It is understood by the patient/guardian that if the Sx's persist or worsen they need to return immediately for re-evaluation. 08/06 15:30 Order name: Basic Metabolic Panel cp 08/06 15:30 Order name: CBC with Diff; Complete Time: 16:20 cp 08/06 16:20 Interpretation: Normal except: [place]% 73.9. cp 08/06 15:30 Order name: Hepatic Function; Complete Time: 16:56 cp 08/06 15:30 Order name: Lipase; Complete Time: 16:56 cp 08/06 15:30 Order name: Urine Microscopic Only; Complete Time: 16:56 cp 08/06 16:56 Interpretation: Reviewed. cp 08/06 15:31 Order name: Basic Metabolic Panel; Complete Time: 16:56 EDMS 08/06 16:56 Interpretation: Reviewed. cp 08/06 15:30 Order name: CT Abd/Pelvis - IV Contrast Only; Complete Time: 16:27 cp 08/06 15:43 Order name: Urine Dipstick-Ancillary; Complete Time: 15:56 EDMS 08/06 15:56 Interpretation: Normal except: UKET Trace; UPH 8.5; UPROT Trace. cp 08/06 15:53 Order name: Urine --Ancillary (enter results) eb 08/06 15:54 Order name: Urine --Ancillary; Complete Time: 16:20 EDMS 08/06 16:34 Order name: Wet Prep; Complete Time: 19:47 cp 08/06 16:34 Order name: GC (GONORR/CHLAMYDIA) Probe cp 08/06 16:34 Order name: US Transvaginal Study (Probe); Complete Time: 18:13 cp 08/06 18:13 Interpretation: Reviewed report. cp 08/06 15:30 Order name: IV Saline Lock; Complete Time: 15:54 cp 08/06 15:30 Order name: Labs collected and sent; Complete Time: 15:54 cp 08/06 15:30 Order name: Urine Dipstick-Ancillary (obtain specimen); Complete Time: 15:54 cp 08/06 15:30 Order name: Urine Test (obtain specimen); Complete Time: 15:54 cp 08/06 16:34 Order name: Pelvic Exam Setup; Complete Time: 16:47 cp Administered Medications: 15:40 Drug: Zofran (Ondansetron) 4 mg Route: IVP; Site: left antecubital; cb5 20:09 Follow up: Response: No adverse reaction mk 15:40 Drug: morphine 2 mg Route: IVP; Site: left antecubital; cb5 20:09 Follow up: Response: No adverse reaction mk 15:40 Drug: NS 0.9% 1000 ml Route: IV; Rate: 1 bolus; Site: left antecubital; cb5 20:09 Follow up: Response: No adverse reaction mk 20:09 Follow up: Response: No adverse reaction; IV Status: Completed infusion; IV Intake: mk 1000ml 18:35 Drug: Ketorolac 15 mg Route: IVP; Site: left antecubital; cb5 19:50 Follow up: Response: No adverse reaction mk Disposition Summary: 08/06/21 19:50 Discharge Ordered Location: Home cp Problem: new cp Symptoms: have improved cp Condition: Stable cp Diagnosis - Lower abdominal pain, unspecified cp Followup: cp - With: Private Physician - When: 2 - 3 days - Reason: Worsening of condition Discharge Instructions: - Discharge Summary Sheet cp - Abdominal Pain, Adult cp - Bacterial Vaginosis cp Forms: - Medication Reconciliation Form cp - Thank You Letter cp - Antibiotic Education cp - Prescription Opioid Use cp Prescriptions: - Diclofenac Sodium 75 mg Oral Tablet Sustained Release - take 1 tablet by ORAL route 2 times per day; 30 tablet; Refills: 0, Product cp Selection Permitted - Metronidazole 500 mg Oral Tablet - take 1 tablet by ORAL route every 12 hours for 7 days; 14 tablet; Refills: 0, cp Product Selection Permitted Addendum: 08/09/2021 00:52 Co-signature as Attending Physician, Christian Rubio MD. r n Signatures: Dispatcher [employer] Christian Lal MD MD rn Page, Corey, PA PA cp Brenda Lyons RN RN ld1 Christa Barth RN RN cb5 Cori Griffin RN
[2021-08-06 20:25] VITALS: BP 110/72; TEMP 98.9; O2SAT 98
[2021-08-09 22:11] LABS: C.trachomatis RNA,TMA Not Detected (Not Detected)
== END 2021-08-06 20:08 | disposition home or self-care (01) ==
LOC: ER 14:49
DX: R10.32 Left lower quadrant pain (principal); F17.210 Nicotine dependence, cigarettes, uncomplicated
CPT/HCPCS: 96361; 85025; 80048; 36415; 81025; 82565; 80076; 87210; 83690; 87590; 87490; 74177; 76830; 96375; 96374; 99284; Q9967; J2270; J7030; J2405; 81003; 81015; J7040

== ENCOUNTER 2022-02-23 14:55 | Emergency (ER) | payer OTHER ==
[2022-02-23] MEDS ORDERED: ONDANSETRON 4 MG/2 ML VIAL ONE (15:34)
[2022-02-23] MEDS ORDERED: NA CHLORIDE 0.9% 1,000 ML ONE (15:34)
[2022-02-23] MEDS ORDERED: KETOROLAC 30 MG/ML INJ ONE (15:34)
--- NOTE | 2022-02-23 15:45 | RAD REPORT ---
EXAM DESCRIPTION: CT - Abdomen Pelvis Wo Contrast - 02/23/2022 3:25 pm CLINICAL HISTORY: sdaf COMPARISON: Abdomen Pelvis W Contrast dated 08/06/2021; Stone Protocol dated 03/12/2021 TECHNIQUE: Axial [address] imaging of the abdomen and pelvis was performed without IV contrast. No IV contrast was given because of allergy, abnormal renal function, patient refusal or physician re quest. No oral contrast. All CT scans are performed using dose optimization technique as appropriate and may include automated exposure control or mA/KV adjustment according to patient size. FINDINGS: No suspicious findings in the lung bases. The liver, spleen and pancreas show no suspicious findings on non-contrast imaging. Gallbladder and b iliary tree are also without suspicious finding. No obstructing or nonobstructing calculi identified. Phleboliths are present along the pelvic floor. Fullness of the right renal pelvis and ureter noted, increased slightly from the August study. A mi nimal hydronephrosis from recently passed stone, inflammatory debris or blood would be possible. Phys iologic dilatation from fluid intake is possible. Left-side collecting system is fractionally increas ed as well. No perinephric stranding. No significant adrenal finding. Isodense renal masses and pyelo nephritis cannot be excluded in the absence of IV contrast. Urinary bladder is too contracted to asse ss for bladder wall thickness. No bladder calculi seen. Uterus and ovaries within normal limits and similar to prior imaging. No dilated bowel loops or bowel wall thickening. Appendectomy clips are present. No acute bowel findi ng identifiable. No free air, free fluid or inflammatory stranding. No hernia, mass or bulky lymphade nopathy. No suspicious bony findings. IMPRESSION: Mild bilateral pelvis and proximal ureter dilatation compared to August 2021 imaging. No obstructing calculi. This is potentially physiologic enlargement secondary to fluid volume. Given the bilateral collecting system changes, recently passed stone would not be likely. Isodense ma sses and pyelonephritis cannot be excluded on noncontrast imaging. 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
[2022-02-23 15:48] LABS: Urine Blood Negative (Negative); Urine Glucose Negative (Negative); Urine Protein Negative (Negative); Urine Specific Gravity 1.015 (1.005-1.030); Urine pH 7.5 (5.0-7.0)
[2022-02-23 15:54] LABS: Absolute Lymphocytes (CBC) 1.5 K/uL (0.7-4.9); Hematocrit 38.5 % (36.0-45.0); Lymphocytes % 29.7 % (15.3-44.8); MCV 92.6 fL (80-100); MPV 8.7 fL (7.6-11.3); RBC Red Blood Cell Count 4.16 M/uL (3.86-4.86)
[2022-02-23 16:10] LABS: Albumin 3.8 g/dL (3.4-5.0); Bilirubin Total 0.5 mg/dL (0.2-1.0)
[2022-02-23 16:24] LABS: Urine Specific Gravity/Preg 1.015 (1.005-1.030)
--- NOTE | 2022-02-23 16:47 | ER ---
Nurse's Notes [facility] Name: Ximena Smith Age: 31 yrs Sex: Female : 1990 Arrival Date: 02/23/2022 Time: 14:58 Bed 15 Private MD: Diagnosis: Abdominal pain, unspecified Presentation: 02/23 15:10 Chief complaint: Patient states: she has been laving low back pain and lower abdominal ap3 pain for a few days. patient states she has a hx of kidney infections and this seems to feel like the way it has in the past. Coronavirus screen: At this time, the client does not indicate any symptoms associated with coronavirus-19. Ebola Screen: No symptoms or risks identified at this time. Initial Sepsis Screen: Does the patient meet any 2 criteria? No. Patient's initial sepsis screen is negative. Does the patient have a suspected source of infection? No. Patient's initial sepsis screen is negative. Risk Assessment: Do you want to hurt yourself or someone else? Patient reports no desire to harm self or others. Onset of symptoms was February 21, 2022. 15:10 Method Of Arrival: Ambulatory ap3 15:10 Acuity: LAVINIA 3 ap3 Triage Assessment: 15:11 General: Appears uncomfortable, Behavior is calm, cooperative. Pain: Complains of pain ap3 in suprapubic area, right lower quadrant and left lower quadrant, lower back. Neuro: Level of Consciousness is awake, alert, obeys commands, Oriented to person, place, time, situation, Gait is steady. Cardiovascular: Patient's skin is warm and dry. Respiratory: Airway is patent is compromised Respiratory effort is even, unlabored, Respiratory pattern is regular, symmetrical. GI: Reports lower abdominal pain. [employer]: 15:12 LMP N/A - Irregular menses ap3 Historical: - Allergies: 15:11 Morphine; ap3 - PMHx: 15:11 PCOS; ap3 - PSHx: 15:11 Appendectomy; Eptopic ; Ligation of fallopian tube; ap3 - Immunization history:: Client reports having NOT received the Covid vaccine. - Social history:: Smoking status: Reported history of juuling and/or vaping. Screenin:12 Abuse screen: Denies threats or abuse. Nutritional screening: No deficits noted. ap3 Tuberculosis screening: No symptoms or risk factors identified. Fall Risk None identified. Assessment: 15:15 General: SEE TRIAGE NOTE. bp 16:00 Reassessment: No changes from previously documented assessment. Patient and/or family bp updated on plan of care and expected duration. Pain level reassessed. GI: Abdomen is non-distended. 16:58 Reassessment: PT D/C HOME AMBULATORY. bp Vital Signs: 15:10 BP 132 / 91; Pulse 79; Resp 17; Temp 98.4; Pulse Ox 100% ; Weight 74.84 kg; Height 5 ap3 ft. 8 in. (172.72 cm); Pain 7/10; 16:00 BP 106 / 70; Pulse 66; Resp 16; Pulse Ox 100% ; bp 16:58 BP 111 / 90; Pulse 65; Resp 16; Pulse Ox 100% ; bp 15:10 Body Mass Index 25.09 (74.84 kg, 172.72 cm) ap3 ED Course: 14:58 Patient arrived in ED. rg4 15:00 Kristian Ly is [facility]. jl9 15:00 Vipin Bell MD is Attending Physician. jl9 15:02 Yash Gomez, TOMI is Primary Nurse. bp 15:11 Triage completed. ap3 15:12 Arm band placed on right wrist. ap3 15:12 Patient has correct armband on for positive identification. Bed in low position. Call ap3 light in reach. Side rails up X 1. Pulse ox on. NIBP on. Door closed. Noise minimized. 15:28 CT Abd/Pelvis - Without Contrast In Process Unspecified. EDMS 15:35 Inserted saline lock: 20 gauge in right antecubital area, using aseptic technique. bp 16:58 No provider procedures requiring assistance completed. IV discontinued, intact, bp bleeding controlled, No redness/swelling at site. Pressure dressing applied. Administered Medications: 15:35 Drug: NS 0.9% 1000 ml Route: IV; Rate: 1 bolus; Site: right antecubital; bp 16:59 Follow up: IV Status: Completed infusion; IV Intake: 1000ml bp 15:35 Drug: Zofran (Ondansetron) 4 mg Route: IVP; Site: right antecubital; bp 16:10 Follow up: Response: No adverse reaction bp 15:35 Drug: Ketorolac 15 mg Route: IVP; Site: right antecubital; bp 16:10 Follow up: Response: Pain is decreased bp Medication: 16:00 VIS not applicable for this client. bp Intake: 16:59 IV: 1000ml; Total: 1000ml. bp Outcome: 16:46 Discharge ordered by MD. chau 16:58 Discharged to home ambulatory. bp 16:58 Condition: stable 16:58 Discharge instructions given to patient, Instructed on discharge instructions, follow up and referral plans. Demonstrated understanding of instructions, follow-up care. 17:00 Patient left the ED. bp Signatures: Dispatcher [employer] Erma Day rg4 Yash Gomez, RN RN bp Odette Mello RN RN [id number] Kristian Ly9
--- NOTE | 2022-02-23 16:47 | EDPHYS ---
Physician Documentation [facility] Name: Ximena Smith Age: 31 yrs Sex: Female : 1990 Arrival Date: 02/23/2022 Time: 14:58 Bed 15 Private MD: ED Physician Vipin Bell HPI: 02/23 15:16 This 31 yrs old Female presents to ER via Ambulatory with complaints of jl9 Nausea, Back Pain, Abdominal Pain. 15:16 The patient presents to the emergency department with nausea, vomiting, abdominal pain, jl9 of the posterior aspect of right lateral abdomen and posterior aspect of left lateral abdomen, described as crampy, and does not radiate. Onset: The symptoms/episode began/occurred 2 day(s) ago. The symptoms are aggravated by nothing. The symptoms are alleviated by nothing. Associated signs and symptoms: Pertinent positives: abdominal pain, dysuria, nausea, vomiting, Pertinent negatives: belching, GI bleeding, hematuria, vaginal discharge. Severity of symptoms: Pain is currently a 3 / 10. The patient has experienced similar episodes in the past. [employer]: 15:12 LMP N/A - Irregular menses ap3 Historical: - Allergies: 15:11 Morphine; ap3 - PMHx: 15:11 PCOS; ap3 - PSHx: 15:11 Appendectomy; Eptopic ; Ligation of fallopian tube; ap3 - Immunization history:: Client reports having NOT received the Covid vaccine. - Social history:: Smoking status: Reported history of juuling and/or vaping. ROS: 15:17 Constitutional: Negative for fever, chills, and weight loss, Eyes: Negative for injury, jl9 pain, redness, and discharge, ENT: Negative for injury, pain, and discharge, Neck: Negative for injury, pain, and swelling, Cardiovascular: Negative for chest pain, palpitations, and edema, Respiratory: Negative for shortness of breath, cough, wheezing, and pleuritic chest pain. 15:17 Back: Negative for injury and pain, MS/Extremity: Negative for injury and deformity, Skin: Negative for injury, rash, and discoloration, Neuro: Negative for headache, weakness, numbness, tingling, and seizure, Psych: Negative for depression, anxiety, suicide ideation, homicidal ideation, and hallucinations, Allergy/Immunology: Negative for hives, rash, and allergies, Endocrine: Negative for neck swelling, polydipsia, polyuria, polyphagia, and marked weight changes, Hematologic/Lymphatic: Negative for swollen nodes, abnormal bleeding, and unusual bruising. 15:17 Abdomen/GI: Positive for abdominal pain, nausea and vomiting, Negative for 15:17 : Positive for urinary symptoms, burning with urination. Exam: 15:17 Constitutional: This is a well developed, well nourished patient who is awake, alert, jl9 and in no acute distress. Head/Face: Normocephalic, atraumatic. Eyes: Pupils equal round and reactive to light, extra-ocular motions intact. Lids and lashes normal. Conjunctiva and sclera are non-icteric and not injected. Cornea within normal limits. Periorbital areas with no swelling, redness, or edema. ENT: Mucous membranes moist. Neck: Trachea midline, no thyromegaly or masses palpated, and no cervical lymphadenopathy. Supple, full range of motion without nuchal rigidity, or vertebral point tenderness. No Meningismus. Chest/axilla: Normal chest wall appearance and motion. Nontender with no deformity. No lesions are appreciated. Cardiovascular: Regular rate and rhythm with a normal S1 and S2. No gallops, murmurs, or rubs. Normal PMI, no JVD. No pulse deficits. Respiratory: Lungs have equal breath sounds bilaterally, clear to auscultation and percussion. No rales, rhonchi or wheezes noted. No increased work of breathing, no retractions or nasal flaring. 15:17 Skin: Warm, dry with normal turgor. Normal color with no rashes, no lesions, and no evidence of cellulitis. MS/ Extremity: Pulses equal, no cyanosis. Neurovascular intact. Full, normal range of motion. Neuro: Awake and alert, GCS 15, oriented to person, place, time, and situation. Cranial nerves II-XII grossly intact. Motor strength 5/5 in all extremities. Sensory grossly intact. Cerebellar exam normal. Normal gait. Psych: Awake, alert, with orientation to person, place and time. Behavior, mood, and affect are within normal limits. 15:17 Abdomen/GI: Inspection: abdomen appears normal, Bowel sounds: normal, Palpation: mild abdominal tenderness, in the posterior aspect of right lateral abdomen and posterior aspect of left lateral abdomen, Rectal exam: 15:17 Back: CVA tenderness, that is mild, is noted bilaterally. Vital Signs: 15:10 BP 132 / 91; Pulse 79; Resp 17; Temp 98.4; Pulse Ox 100% ; Weight 74.84 kg; Height 5 ap3 ft. 8 in. (172.72 cm); Pain 7/10; 16:00 BP 106 / 70; Pulse 66; Resp 16; Pulse Ox 100% ; bp 16:58 BP 111 / 90; Pulse 65; Resp 16; Pulse Ox 100% ; bp 15:10 Body Mass Index 25.09 (74.84 kg, 172.72 cm) ap3 MDM: 15:00 Patient medically screened. [facility] 15:18 Data reviewed: vital signs, nurses notes. [facility] 16:46 Counseling: I had a detailed discussion with the patient and/or guardian regarding: the [facility] historical points, exam findings, and any diagnostic results supporting the discharge/admit diagnosis, lab results, radiology results, the need for outpatient follow up, to return to the emergency department if symptoms worsen or persist or if there are any questions or concerns that arise at home. 02/23 15:12 Order name: CBC with Diff; Complete Time: 16:27 [facility] 02/23 15:12 Order name: CMP; Complete Time: 16:27 [facility] 02/23 15:12 Order name: Lipase; Complete Time: 16:27 [facility] 02/23 15:12 Order name: CT Abd/Pelvis - Without Contrast; Complete Time: 15:48 [facility] 02/23 15:48 Order name: Urine Dipstick-Ancillary; Complete Time: 16:27 EDMS 02/23 15:50 Order name: Urine --Ancillary (enter results); Complete Time: 16:27 dh3 02/23 15:12 Order name: IV Saline Lock; Complete Time: 15:50 [facility] 02/23 15:12 Order name: Labs collected and sent; Complete Time: 15:50 [facility] 02/23 15:12 Order name: Urine Dipstick-Ancillary (obtain specimen); Complete Time: 15:50 [facility] 02/23 15:12 Order name: Urine Test (obtain specimen); Complete Time: 15:50 [facility] Administered Medications: 15:35 Drug: NS 0.9% 1000 ml Route: IV; Rate: 1 bolus; Site: right antecubital; bp 16:59 Follow up: IV Status: Completed infusion; IV Intake: 1000ml bp 15:35 Drug: Zofran (Ondansetron) 4 mg Route: IVP; Site: right antecubital; bp 16:10 Follow up: Response: No adverse reaction bp 15:35 Drug: Ketorolac 15 mg Route: IVP; Site: right antecubital; bp 16:10 Follow up: Response: Pain is decreased bp Disposition: 17:54 Co-signature as Attending Physician, Vipin Bell MD I agree with the assessment and kdr plan of care. Disposition Summary: 02/23/22 16:46 Discharge Ordered Location: Home jl9 Condition: Stable jl9 Diagnosis - Abdominal pain, unspecified jl9 Followup: jl9 - With: Private Physician - When: 1 - 2 days - Reason: Recheck today's complaints, Continuance of care, Re-evaluation by your physician Discharge Instructions: - Discharge Summary Sheet jl9 - Flank Pain, Adult jl9 - Kidney Stones, [id number] jl9 Forms: - Medication Reconciliation Form jl9 - Thank You Letter jl9 - Work release form iw - Antibiotic Education jl9 - Prescription Opioid Use jl9 Signatures: Dispatcher [employer] EDMS Vipin Bell MD MD kdr Peltier, Brian RN RN Odette Milligan RN RN Kristian Catalan jl9
[2022-02-23 17:55] VITALS: TEMP 98.4; O2SAT 100
[2022-02-23 18:00] VITALS: BP 111/90
== END 2022-02-23 17:00 | disposition home or self-care (01) ==
LOC: ER 14:55
DX: R10.9 Unspecified abdominal pain (principal); R11.2 Nausea with vomiting, unspecified; Z88.5 Allergy status to narcotic agent
CPT/HCPCS: 96361; 85025; 36415; 81025; 81003; 83690; 80053; 74176; 96375; 96374; 99284; J7030; J2405

== ENCOUNTER 2022-03-01 20:02 | Emergency (ER) | payer OTHER ==
[2022-03-01 21:07] LABS: Urine Blood Negative (Negative); Urine Glucose Negative (Negative); Urine Protein Negative (Negative); Urine Specific Gravity 1.015 (1.005-1.030)
[2022-03-01 21:25] LABS: Urine Bacteria <20 /HPF (<20); Urine Mucus Slight /HPF (None Seen); Urine RBC <5 /HPF (None Seen)
[2022-03-01 22:59] LABS: Urine Specific Gravity/Preg 1.015 (1.005-1.030)
[2022-03-01 23:25] LABS: Absolute Lymphocytes (CBC) 1.7 K/uL (0.7-4.9); Hematocrit 39.8 % (36.0-45.0); Lymphocytes % 24.8 % (15.3-44.8); MCV 92.5 fL (80-100); MPV 8.7 fL (7.6-11.3)
[2022-03-01] MEDS ORDERED: KETOROLAC 30 MG/ML INJ ONE (23:37)
[2022-03-01 23:40] LABS: Albumin 4.1 g/dL (3.4-5.0); Bilirubin Total 0.4 mg/dL (0.2-1.0); Potassium 3.8 mmol/L (3.5-5.1); Protein, Total 7.6 g/dL (6.4-8.2)
[2022-03-01] MEDS ORDERED: LIDOCAINE 4% PATCH ONE (23:47)
--- NOTE | 2022-03-02 01:22 | EDPHYS ---
Physician Documentation [facility] Name: Ximena Smith Age: 31 yrs Sex: Female : 1990 Arrival Date: 03/01/2022 Time: 20:03 Bed 24 Private MD: ED Physician Ricci Elizondo HPI: 03/01 21:15 This 31 yrs old Female presents to ER via Ambulatory with complaints of Flank Pain. cp 21:15 The patient presents with pain left flank pain. The pain radiates to the left groin. cp 21:15 The problem was sustained from unknown cause. Onset: The symptoms/episode cp began/occurred 1 week(s) ago. 21:15 Associated signs and symptoms: Pertinent negatives: constipation, dysuria, fever, cp incontinence, numbness, tingling, urinary retention, weakness. 21:15 Patient reports at previous visit to this ED, 02-23-2022, she was told she may have cp passed a kidney stone. Historical: - Allergies: 20:18 No Known Allergies; hb - PMHx: 20:18 PCOS; hb - PSHx: 20:18 Appendectomy; Eptopic ; Ligation of fallopian tube; hb - Immunization history:: Adult Immunizations unknown. - Social history:: Smoking status: unknown. ROS: 21:20 Constitutional: Negative for body aches, chills, fever, poor PO intake. cp 21:20 Eyes: Negative for injury, pain, redness, and discharge. cp 21:20 ENT: Negative for drainage from ear(s), ear pain, sore throat, difficulty swallowing, difficulty handling secretions. 21:20 Cardiovascular: Negative for chest pain, palpitations. 21:20 Respiratory: Negative for cough, shortness of breath, wheezing. 21:20 Abdomen/GI: Negative for abdominal pain, vomiting, diarrhea, constipation. 21:20 Back: Positive for pain at rest, pain with movement. 21:20 : Negative for urinary symptoms, vaginal bleeding, vaginal discharge. 21:20 Skin: Negative for cellulitis, rash. 21:20 Neuro: Negative for altered mental status, dizziness, headache, weakness. 21:20 All other systems are negative. Exam: 21:25 Constitutional: The patient appears in no acute distress, alert, awake, non-toxic, well cp developed, well nourished. 21:25 Head/Face: Normocephalic, atraumatic. cp 21:25 Eyes: Periorbital structures: appear normal, Conjunctiva: normal, no exudate, no injection, Sclera: no appreciated abnormality, Lids and lashes: appear normal, bilaterally. 21:25 ENT: External ear(s): are unremarkable, Nose: is normal, Mouth: Lips: moist, Oral mucosa: moist, Posterior pharynx: Airway: no evidence of obstruction, patent. 21:25 Neck: ROM/movement: is normal, is supple, without pain, no range of motions limitations. 21:25 Chest/axilla: Inspection: normal. 21:25 Cardiovascular: Rate: normal, Rhythm: regular, Edema: is not appreciated, JVD: is not appreciated. 21:25 Respiratory: the patient does not display signs of respiratory distress, Respirations: normal, no use of accessory muscles, no retractions, labored breathing, is not present, Breath sounds: are clear throughout, no decreased breath sounds, no stridor, no wheezing. 21:25 Abdomen/GI: Inspection: abdomen appears normal, Bowel sounds: active, all quadrants, Palpation: soft, in all quadrants, mild abdominal tenderness, in the left lower quadrant, rebound tenderness, is not appreciated, involuntary guarding, is not appreciated. 21:25 Back: pain, that is mild, of the left mid back, ROM is normal. 21:25 Skin: no rash present. 21:25 Neuro: Orientation: is normal, Mentation: is normal, Motor: moves all fours, strength is normal, Gait: is steady, at a normal pace. Vital Signs: 20:17 BP 137 / 78; Pulse 93; Resp 20; Temp 98.9(O); Pulse Ox 100% on R/A; Weight 77.11 kg; hb Height 5 ft. 8 in. (172.72 cm); Pain 8/10; 21:06 BP 105 / 71; Pulse 86; Resp 18 S; Pulse Ox 100% on R/A; as6 23:51 BP 99 / 61; Pulse 64; Resp 19 S; Pulse Ox 100% on R/A; as6 09/02 01:06 BP 113 / 83; Pulse 70; Resp 18 S; Pulse Ox 100% on R/A; as6 02:13 BP 109 / 71; Pulse 67; Resp 18 S; Pulse Ox 97% on R/A; as6 03/01 20:17 Body Mass Index 25.85 (77.11 kg, 172.72 cm) hb MDM: 03/01 20:31 Patient medically screened. cp 03/02 01:21 Data reviewed: vital signs, nurses notes, lab test result(s), radiologic studies, cp ultrasound. 01:21 Differential diagnosis: strain, sciatica, UTI, nephrolithiasis, pyelonephritis, UTI. cp Counseling: I had a detailed discussion with the patient and/or guardian regarding: the historical points, exam findings, and any diagnostic results supporting the discharge/admit diagnosis, lab results, radiology results, the need for outpatient follow up, a family practitioner, to return to the emergency department if symptoms worsen or persist or if there are any questions or concerns that arise at home. Response to treatment: the patient's symptoms have mildly improved after treatment, and as a result, I will discharge patient. 03/01 20:55 Order name: Urine Microscopic Only; Complete Time: 22:14 cp 03/01 21:07 Order name: Urine --Ancillary (enter results); Complete Time: 23:29 wm 03/01 21:07 Order name: Urine Dipstick-Ancillary; Complete Time: 22:14 EDMS 03/01 21:27 Order name: CBC with Diff; Complete Time: 23:55 cp 03/01 21:27 Order name: CMP; Complete Time: 23:55 cp 03/01 21:27 Order name: Lipase; Complete Time: 23:55 cp 03/01 20:55 Order name: Urine Dipstick-Ancillary (obtain specimen); Complete Time: 21:06 cp 03/01 21:27 Order name: IV Saline Lock; Complete Time: 23:23 cp 03/01 21:27 Order name: Labs collected and sent; Complete Time: 23:23 cp 03/01 23:56 Order name: US Abdomen Limited cp 03/02 00:58 Order name: Blood Pressure Recheck; Complete Time: 01:07 cp Administered Medications: 03/01 23:34 Drug: Ketorolac 15 mg Route: IVP; Site: right antecubital; 03/02 02:17 Follow up: Response: No adverse reaction as 03/01 23:39 Drug: Lidoderm Patch 5 % (700 mg/patch) 1 patches {Note: applied left upper back.} cg Route: Topical; Site: affected area; 03/02 02:17 Follow up: Response: No adverse reaction 01:22 Drug: NS 0.9% 1000 ml Route: IV; Rate: 1 bolus; Site: right antecubital; 02:18 Follow up: Response: No adverse reaction; IV Status: Completed infusion; IV Intake: as6 1000ml Disposition Summary: 03/02/22 01:21 Discharge Ordered Location: Home cp Problem: new cp Symptoms: have improved cp Condition: Stable cp Diagnosis - Dorsalgia, unspecified cp Followup: cp - With: Private Physician - When: 2 - 3 days - Reason: Recheck today's complaints Discharge Instructions: - Discharge Summary Sheet cp - Acute Back Pain, Adult cp Forms: - Medication Reconciliation Form cp - Thank You Letter cp - Antibiotic Education cp - Prescription Opioid Use cp Prescriptions: - Cyclobenzaprine 10 mg Oral Tablet - take 1 tablet by ORAL route every 8 hours As needed; 20 tablet; Refills: 0, cp Product Selection Permitted - Diclofenac Sodium 75 mg Oral Tablet Sustained Release - take 1 tablet by ORAL route 2 times per day; 30 tablet; Refills: 0, Product cp Selection Permitted Signatures: Dispatcher [employer] EDMS Ricci Jalloh PA PA Cesia Bazan RN RN Dia Thompson RN RN Jadiel Oliva RN RN as6 Corrections: (The following items were deleted from the chart) 03/01 20:18 20:18 Allergies: Morphine; [facility] 03/02 20:58 03/01 21:15 The pain radiates to the left leg, cp cp 03/03 01:31 03/01 21:25 Back: pain, that is mild, of the mid back area, ROM is normal, cp cp
--- NOTE | 2022-03-02 01:22 | ER ---
Nurse's Notes [facility] Name: Ximena Smith Age: 31 yrs Sex: Female : 1990 Arrival Date: 03/01/2022 Time: 20:03 Bed 24 Private MD: Diagnosis: Dorsalgia, unspecified Presentation: 03/01 20:17 Chief complaint: Left flank pain that radiates to left groin x 1 week. Coronavirus hb screen: At this time, the client does not indicate any symptoms associated with coronavirus-19. Ebola Screen: No symptoms or risks identified at this time. Risk Assessment: Do you want to hurt yourself or someone else? Patient reports no desire to harm self or others. Onset of symptoms was February 22, 2022. 20:17 Method Of Arrival: Ambulatory hb 20:17 Acuity: LAVINIA 3 hb 21:07 Initial Sepsis Screen: Does the patient meet any 2 criteria? No. Patient's initial as6 sepsis screen is negative. Does the patient have a suspected source of infection? No. Patient's initial sepsis screen is negative. Historical: - Allergies: 20:18 No Known Allergies; hb - PMHx: 20:18 PCOS; hb - PSHx: 20:18 Appendectomy; Eptopic ; Ligation of fallopian tube; hb - Immunization history:: Adult Immunizations unknown. - Social history:: Smoking status: unknown. Screenin:07 Abuse screen: Denies threats or abuse. Denies injuries from another. Nutritional as6 screening: No deficits noted. Tuberculosis screening: No symptoms or risk factors identified. Fall Risk None identified. Assessment: 21:07 General: Appears uncomfortable, Behavior is calm, cooperative. Pain: Complains of pain as6 in back. Neuro: Level of Consciousness is awake, alert. Respiratory: Respiratory effort is even, unlabored. : Reports pain with urination. Vital Signs: 20:17 BP 137 / 78; Pulse 93; Resp 20; Temp 98.9(O); Pulse Ox 100% on R/A; Weight 77.11 kg; hb Height 5 ft. 8 in. (172.72 cm); Pain 8/10; 21:06 BP 105 / 71; Pulse 86; Resp 18 S; Pulse Ox 100% on R/A; as6 23:51 BP 99 / 61; Pulse 64; Resp 19 S; Pulse Ox 100% on R/A; as6 03/02 01:06 BP 113 / 83; Pulse 70; Resp 18 S; Pulse Ox 100% on R/A; as6 02:13 BP 109 / 71; Pulse 67; Resp 18 S; Pulse Ox 97% on R/A; as6 03/01 20:17 Body Mass Index 25.85 (77.11 kg, 172.72 cm) hb ED Course: 03/01 20:03 Patient arrived in ED. jj6 20:18 Triage completed. hb 20:18 Arm band placed on. hb 20:22 Ricci Jalloh PA is PHCP. cp 20:22 Ricci Elizondo MD is Attending Physician. cp 20:23 Jadiel Oliva, TOMI is Primary Nurse. as6 21:06 Urine Microscopic Only Sent. as6 21:08 Bed in low position. Call light in reach. Side rails up X2. as6 22:30 Inserted saline lock: 20 gauge in right antecubital area, using aseptic technique. as6 Blood collected. 03/02 00:18 US Abdomen Limited In Process Unspecified. EDMS 02:18 No provider procedures requiring assistance completed. IV discontinued, intact, as6 bleeding controlled, No redness/swelling at site. Pressure dressing applied. Administered Medications: 03/01 23:34 Drug: Ketorolac 15 mg Route: IVP; Site: right antecubital; cg 03/02 02:17 Follow up: Response: No adverse reaction as6 03/01 23:39 Drug: Lidoderm Patch 5 % (700 mg/patch) 1 patches {Note: applied left upper back.} cg Route: Topical; Site: affected area; 03/02 02:17 Follow up: Response: No adverse reaction as6 01:22 Drug: NS 0.9% 1000 ml Route: IV; Rate: 1 bolus; Site: right antecubital; as6 02:18 Follow up: Response: No adverse reaction; IV Status: Completed infusion; IV Intake: as6 1000ml Medication: 02:19 VIS not applicable for this client. as6 Intake: 02:18 IV: 1000ml; Total: 1000ml. as6 Outcome: 01:21 Discharge ordered by MD. cp 02:19 Discharged to home ambulatory. as6 02:19 Condition: stable 02:19 Discharge instructions given to patient, Instructed on discharge instructions, follow up and referral plans. no driving heavy equipment, medication usage, Demonstrated understanding of instructions, follow-up care, medications, Prescriptions given X 2. 02:19 Patient left the ED. as6 Signatures: Dispatcher [employer] EDMS Ricci Jalloh PA PA cp Garcia, Cindy, TOMI KRISHNA Dia Thompson RN RN Pippa Phoenix jj6 Jadiel Oliva RN RN as6 Corrections: (The following items were deleted from the chart) 03/01 20:18 20:18 Allergies: Morphine; hb hb
[2022-03-02] MEDS ORDERED: NA CHLORIDE 0.9% 1,000 ML ONE (01:28)
[2022-03-02 04:31] VITALS: TEMP 98.9
[2022-03-02 04:40] VITALS: BP 109/71; O2SAT 97
--- NOTE | 2022-03-02 13:38 | RAD REPORT ---
EXAM DESCRIPTION: US - Abdomen Exam Limited - 03/02/2022 12:16 am CLINICAL HISTORY: Back pain. COMPARISON: None. TECHNIQUE: Ultrasound of the gallbladder with Doppler flow imaging was obtained. FINDINGS: The main portal vein is patent with normal hepatopedal flow. Gallbladder: No cholelithiasis or gallbladder wall thickening. No focal tenderness over the gallbladd er. No pericholecystic fluid identified. Bile ducts: No dilatation of the intrahepatic bile ducts. The common bile duct measures 0.3 cm in rodrigo meter at the biun hepatis. IMPRESSION: 1. Normal appearance of the gallbladder. 2. No biliary ductal dilatation. Electronically signed by: Margaret Mora MD 03/02/2022 12:27 AM CDT Due to temporary technical issues with the PACS/Fluency reporting system, reports are being signed by the in house radiologists without review as a courtesy to insure prompt reporting. The interpreting radiologist is fully responsible for the content of the report.
== END 2022-03-02 02:19 | disposition home or self-care (01) ==
LOC: ER 20:02
DX: M54.9 Dorsalgia, unspecified (principal); R10.9 Unspecified abdominal pain
CPT/HCPCS: 96361; 85025; 36415; 81025; 83690; 80053; 76705; 96374; 99284; J2001; J7030; 81003; 81015

== ENCOUNTER 2022-03-17 12:36 | Emergency (ER) | payer OTHER ==
[2022-03-17] MEDS ORDERED: NA CHLORIDE 0.9% 1,000 ML ONE (13:51)
[2022-03-17 14:03] LABS: Urine Blood 1+ (Negative); Urine Glucose Negative (Negative); Urine Protein Negative (Negative); Urine Specific Gravity <=1.005 (1.005-1.030); Urine pH 5.5 (5.0-7.0)
[2022-03-17 14:12] LABS: Absolute Lymphocytes (CBC) 1.4 K/uL (0.7-4.9); Hematocrit 38.9 % (36.0-45.0); Lymphocytes % 30.3 % (15.3-44.8); MCV 93.3 fL (80-100); MPV 8.5 fL (7.6-11.3); RBC Red Blood Cell Count 4.17 M/uL (3.86-4.86)
[2022-03-17 14:23] LABS: SARS-CoV-2 Antigen Rapid Res Negative (Negative)
[2022-03-17 14:30] LABS: Potassium 4.1 mmol/L (3.5-5.1); Troponin High Sensitivity 3.2 pg/mL (<58.9)
[2022-03-17] MEDS ORDERED: KETOROLAC 30 MG/ML INJ ONE (15:54)
--- NOTE | 2022-03-17 16:33 | ER ---
Nurse's Notes [facility] Name: Ximena Smith Age: 32 yrs Sex: Female : 1990 Arrival Date: 03/17/2022 Time: 12:37 Bed 23 Private MD: Diagnosis: Weakness-general;Acute pain, not elsewhere classified Presentation: 03/17 12:47 Chief complaint: Body aches, sore throat, chills, headache, nausea, and generalized hb weakness after working in the heat yesterday. Coronavirus screen: Client presents with at least one sign or symptom that may indicate coronavirus-19. Standard/surgical mask placed on the client. Provider contacted for isolation considerations. Risk Assessment: Do you want to hurt yourself or someone else? Patient reports no desire to harm self or others. Onset of symptoms was March 17, 2022. 12:47 Method Of Arrival: Ambulatory hb 12:47 Acuity: LAVINIA 3 hb 12:48 Ebola Screen: No symptoms or risks identified at this time. Initial Sepsis Screen: Does hb the patient meet any 2 criteria? No. Patient's initial sepsis screen is negative. Does the patient have a suspected source of infection? No. Patient's initial sepsis screen is negative. 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 - Social history:: Smoking status: Reported history of juuling and/or vaping. Screenin:00 Abuse screen: Denies threats or abuse. Denies injuries from another. Nutritional kb3 screening: No deficits noted. Tuberculosis screening: No symptoms or risk factors identified. Fall Risk None identified. Assessment: 13:00 General: Appears in no apparent distress. uncomfortable, Behavior is calm, cooperative, kb3 Received care of pt from triage. PT is AAO x4, reports generalized malaise and weakness since this morning including chills, body aches, sore throat, headache. States she worked outside in the heat yesterday and thinks she might have overdone it. Pt is not vaccinated for covid. Reports no sick contacts. 13:00 Pain: Complains of pain in head, neck, right arm, left arm, right leg and left leg kb3 Quality of pain is described as aching, Pain began 1 day ago. 13:00 EENT: Reports pain Sore throat. kb3 16:00 General: Pt is resting comfortably without complaints. kb3 Vital Signs: 12:47 BP 114 / 68; Pulse 105; Resp 16; Temp 98.9; Pulse Ox 100% on R/A; Weight 72.57 kg; hb Height 5 ft. 8 in. (172.72 cm); Pain 7/10; 16:40 BP 103 / 67; Pulse 80; Resp 16; Pulse Ox 99% ; Pain 2/10; kb3 12:47 Body Mass Index 24.33 (72.57 kg, 172.72 cm) hb ED Course: 12:37 Patient arrived in ED. as 12:48 Triage completed. hb 12:49 Arm band placed on. hb 12:53 Fatimah Causey MD is Attending Physician. sd2 12:58 Adelaida Pacheco, TOMI is Primary Nurse. kb3 12:59 Ricci Jalloh PA is PHCP. [facility] 13:00 Patient has correct armband on for positive identification. Bed in low position. Call kb3 light in reach. Side rails up X 1. 13:00 No provider procedures requiring assistance completed. kb3 13:30 Inserted saline lock: 20 gauge in right antecubital area, using aseptic technique. kb3 Blood collected. 16:40 IV discontinued, intact, bleeding controlled, No redness/swelling at site. kb3 Administered Medications: 13:57 Drug: NS 0.9% 1000 ml Route: IV; Rate: 1 bolus; Site: right antecubital; kb3 15:41 Follow up: Response: No adverse reaction; IV Status: Completed infusion; IV Intake: kb3 1000ml 15:48 Drug: Ketorolac 15 mg Route: IVP; Site: right antecubital; kb3 16:35 Follow up: Response: No adverse reaction; Pain is decreased kb3 Medication: 13:00 VIS not applicable for this client. kb3 Intake: 15:41 IV: 1000ml; Total: 1000ml. kb3 Outcome: 16:32 Discharge ordered by . cp 16:46 Discharged to home ambulatory. kb3 16:46 Condition: stable 16:46 Discharge instructions given to patient, Instructed on discharge instructions, follow up and referral plans. medication usage, Demonstrated understanding of instructions, follow-up care, medications, Prescriptions given X 1. 16:46 Patient left the ED. kb3 Signatures: Harjit Rodas PA PA jmm Martinez, Amelia as Page, Corey, PA PA cp Baxter, Heather, RN RN Fatimah Causey MD MD sd2 Adelaida Pacheco RN RN kb3 Corrections: (The following items were deleted from the chart) 14:26 13:00 Inserted saline lock: 20 gauge in right antecubital area, using aseptic kb3 technique. Blood collected. kb3
--- NOTE | 2022-03-17 16:33 | EDPHYS ---
Physician Documentation [facility] Name: Ximena Smith Age: 32 yrs Sex: Female : 1990 Arrival Date: 03/17/2022 Time: 12:37 Bed 23 Private MD: ED Physician Fatimah Causey HPI: 03/17 13:40 This 32 yrs old Female presents to ER via Ambulatory with complaints of Pain All Over, cp General Weakness. 13:40 Patient c/o pain all over and general weakness since yesterday. Patient reports working cp outside for about 20 minutes. Reports body aches, sore throat. 13:40 Onset: The symptoms/episode began/occurred yesterday. Severity of symptoms: in the cp emergency department the symptoms are unchanged despite home interventions. 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 - Social history:: Smoking status: Reported history of juuling and/or vaping. ROS: 13:45 Constitutional: Positive for body aches, generalized pain, Negative for chills, fever, cp poor PO intake. 13:45 Cardiovascular: Negative for chest pain, edema, palpitations. cp 13:45 Respiratory: Negative for cough, shortness of breath, wheezing. 13:45 Eyes: Negative for injury, pain, redness, and discharge. cp 13:45 ENT: Positive for sore throat, Negative for drainage from ear(s), ear pain, difficulty swallowing, difficulty handling secretions. 13:45 Abdomen/GI: Negative for abdominal pain, nausea, vomiting, and diarrhea, constipation. 13:45 : Negative for urinary symptoms. 13:45 Skin: Negative for rash. cp 13:45 Neuro: Positive for weakness, Negative for altered mental status, headache. 13:45 All other systems are negative. Exam: 13:47 ECG was reviewed by the Attending Physician. cp 13:50 Constitutional: The patient appears in no acute distress, alert, awake, cp non-diaphoretic, non-toxic, well developed, well nourished. 13:50 Head/Face: Normocephalic, atraumatic. cp 13:50 Eyes: Periorbital structures: appear normal, Conjunctiva: normal, no exudate, no injection, Sclera: no appreciated abnormality, Lids and lashes: appear normal, bilaterally. 13:50 ENT: External ear(s): are unremarkable, Nose: is normal, Mouth: Lips: moist, Oral mucosa: pink and intact, moist, Posterior pharynx: Airway: no evidence of obstruction, patent, erythema, is not appreciated, exudate, is not appreciated. 13:50 Neck: ROM/movement: is normal, is supple, without pain, no range of motions limitations, no nuchal rigidity, Lymph nodes: no appreciated lymphadenopathy. 13:50 Chest/axilla: Inspection: normal. 13:50 Cardiovascular: Rate: tachycardic, Rhythm: regular, Edema: is not appreciated, JVD: is not appreciated. 13:50 Respiratory: the patient does not display signs of respiratory distress, Respirations: normal, no use of accessory muscles, no retractions, labored breathing, is not present, Breath sounds: are clear throughout, no decreased breath sounds, no stridor, no wheezing. 13:50 Abdomen/GI: Exam negative for discomfort, distension, guarding, Inspection: abdomen appears normal. 13:50 Back: CVA tenderness, is absent. 13:50 Neuro: Orientation: to person, place \T\ time. Mentation: is normal, Motor: moves all fours, strength is normal, Sensation: is normal. Vital Signs: 12:47 BP 114 / 68; Pulse 105; Resp 16; Temp 98.9; Pulse Ox 100% on R/A; Weight 72.57 kg; hb Height 5 ft. 8 in. (172.72 cm); Pain 7/10; 16:40 BP 103 / 67; Pulse 80; Resp 16; Pulse Ox 99% ; Pain 2/10; kb3 12:47 Body Mass Index 24.33 (72.57 kg, 172.72 cm) hb MDM: 14:00 Differential Diagnosis flu, uti, rhabdomyolysis, COVID-19, strep throat, electrolyte cp abnormality, anemia. 16:32 Patient medically screened. cp 16:32 Data reviewed: vital signs, nurses notes, lab test result(s), EKG. 16:32 Counseling: I had a detailed discussion with the patient and/or guardian regarding: the cp historical points, exam findings, and any diagnostic results supporting the discharge/admit diagnosis, lab results, to return to the emergency department if symptoms worsen or persist or if there are any questions or concerns that arise at home. Response to treatment: the patient's symptoms have mildly improved after treatment, and as a result, I will discharge patient. 03/17 13:35 Order name: Basic Metabolic Panel; Complete Time: 15:31 03/17 15:31 Interpretation: Normal except: CL 108. 03/17 13:35 Order name: CBC with Diff; Complete Time: 14:20 03/17 14:20 Interpretation: Normal except: RDW 12.0. 03/17 13:35 Order name: Magnesium; Complete Time: 15:31 03/17 13:35 Order name: Troponin HS; Complete Time: 15:31 03/17 15:31 Interpretation: Reviewed. 03/17 13:35 Order name: CK; Complete Time: 15:31 03/17 13:35 Order name: Influenza Screen (a \T\ B); Complete Time: 15:31 03/17 13:35 Order name: EKG; Complete Time: 13:36 03/17 13:35 Order name: Cardiac monitoring; Complete Time: 13:57 03/17 13:35 Order name: EKG - Nurse/Tech; Complete Time: 13:57 03/17 13:35 Order name: SARS RAPID; Complete Time: 15:31 03/17 14:04 Order name: Urine Dipstick-Ancillary; Complete Time: 14:20 EDMS 03/17 14:21 Interpretation: Normal except: UBLD 1+; UESTR Trace. 03/17 13:35 Order name: IV Saline Lock; Complete Time: 13:57 03/17 13:35 Order name: Labs collected and sent; Complete Time: 13:57 03/17 13:35 Order name: O2 Per Protocol; Complete Time: 13:57 03/17 13:35 Order name: O2 Sat Monitoring; Complete Time: 13:57 03/17 13:35 Order name: Urine Dipstick-Ancillary (obtain specimen); Complete Time: 13:58 03/17 13:35 Order name: Urine Test (obtain specimen); Complete Time: 13:58 cp EC:47 Rate is 72 beats/min. Rhythm is regular. AK interval is normal. QRS interval is normal. cp QT interval is normal. T waves are Inverted in lead aVR. Interpreted by me. Reviewed by me. Administered Medications: 13:57 Drug: NS 0.9% 1000 ml Route: IV; Rate: 1 bolus; Site: right antecubital; kb3 15:41 Follow up: Response: No adverse reaction; IV Status: Completed infusion; IV Intake: kb3 1000ml 15:48 Drug: Ketorolac 15 mg Route: IVP; Site: right antecubital; kb3 16:35 Follow up: Response: No adverse reaction; Pain is decreased kb3 Disposition Summary: 03/17/22 16:32 Discharge Ordered Location: Home cp Problem: new cp Symptoms: have improved cp Condition: Stable cp Diagnosis - Weakness - general cp - Acute pain, not elsewhere classified cp Followup: cp - With: Private Physician - When: 2 - 3 days - Reason: Recheck today's complaints Discharge Instructions: - Discharge Summary Sheet cp - Weakness cp - Acute Pain, Adult cp Forms: - Medication Reconciliation Form cp - Thank You Letter cp - Antibiotic Education cp - Prescription Opioid Use cp - Work release form kb3 Prescriptions: - Diclofenac Sodium 75 mg Oral Tablet Sustained Release - take 1 tablet by ORAL route 2 times per day; 30 tablet; Refills: 0, Product cp Selection Permitted Addendum: 03/19/2022 15:26 STAFF ATTESTATION STATEMENT: I was immediately available onsite in the emergency s d2 department for consultation in the care of this patient. I did not see or examine this patient. Fatimah Causey MD. Signatures: Dispatcher [employer] EDMS Ricci Jalloh PA PA cp Dia Thompson RN RN hb Dunlop, Stephanie, MD MD sd2 Adelaida Pacheco, RN RN kb3 Corrections: (The following items were deleted from the chart) 03/18 16:21 03/17 13:45 ENT: Negative for drainage from ear(s), ear pain, sore throat, difficulty cp swallowing, difficulty handling secretions, cp
--- NOTE | 2022-03-18 15:56 | EKG ---
Test Date: 2022-03-17 Test Time: 13:42:24 Clip Loading Machine Feeder: VICKI MEASUREMENT RESULTS: Intervals: Rate: 72 WA: 124 QRSD: 92 QT: 398 QTc: 435 [place]: P: 61 WA: 124 QRS: 65 T: 38 INTERPRETIVE STATEMENTS: Normal sinus rhythm Normal ECG Compared to ECG 02/19/2021 21:33:27 No significant changes Electronically Signed On 03-18-22 15:54:29 CDT by Jerod Magdaleno
[2022-03-19 02:00] VITALS: TEMP 98.9
[2022-03-19 02:02] VITALS: BP 103/67; O2SAT 99
== END 2022-03-17 16:46 | disposition home or self-care (01) ==
LOC: ER 12:36
DX: R53.1 Weakness (principal); R52 Pain, unspecified; Z20.822 Contact with and (suspected) exposure to COVID-19
CPT/HCPCS: 96361; 93005; 85025; 80048; 36415; 83735; 82550; 81003; 84484; 87804 ×2; 96374; 99284; 87811; J7030